=== PATIENT | female | born 1990 | race Caucasian/White ===

== ENCOUNTER 2021-06-06 12:19 | Emergency (ER) | payer OTHER ==
[~2021-06-06] VITALS: Ht 170.2 cm; Wt 95.3 kg
--- NOTE | 2021-06-06 13:21 | NUR ---
DR BARRAZA AT BEDSIDE FOR EVAL.
--- NOTE | 2021-06-06 13:39 | NUR ---
CARBIDE DIE MAKER AT BEDSIDE FOR BLOOD DRAW.
[2021-06-06 14:13] LABS: BASOPHILS # (AUTO) 0.1 K/uL (0.0-0.2); BASOPHILS % (AUTO) 0.7 % (0.0-2.0); EOSINOPHILS % (AUTO) 15.7 % (0.0-6.0); HEMATOCRIT 40 % (33-45); HEMOGLOBIN 13.5 g/dL (11.5-14.8); LYMPHOCYTES # (AUTO) 1.6 K/uL (0.8-4.8); LYMPHOCYTES % (AUTO) 19.3 % (20.0-44.0); MEAN CORPUSCULAR HGB CONC 34 g/dl (31.0-36.0); MEAN CORPUSCULAR VOLUME 87 fL (82-100); MONOCYTES # (AUTO) 0.5 K/uL (0.1-1.30); NEUTROPHILS # (AUTO) 4.9 K/uL (1.8-8.9); NEUTROPHILS % (AUTO) 58.3 % (43.0-81.0); PLATELET COUNT (AUTO) 296 K/uL (150-450); RED BLOOD CELL COUNT(AUTO) 4.58 MIL/uL (4.0-5.2); WHITE BLOOD COUNT (AUTO) 8.4 K/uL (4.3-11.0)
[2021-06-06 14:15] LABS: BILIRUBIN,URINE NEGATIVE (NEGATIVE); COLOR,URINE YELLOW (YELLOW); LEUKOCYTE ESTERASE ,URINE SMALL (NEGATIVE); NITRITE, URINE NEGATIVE (NEGATIVE); PROTEIN,URINE NEGATIVE (NEGATIVE); UGLUCOSE NEGATIVE (NEGATIVE); UROBILINOGEN,URINE 0.2 EU/dL (0.2)
[2021-06-06 14:18] LABS: CALCIUM, SERUM 8.7 mg/dL (8.5-10.1); CREATININE 0.6 mg/dL (0.6-1.3)
[2021-06-06 14:39] LABS: ALBUMIN 4.1 g/dL (3.4-5.0); BILIRUBIN,DIRECT 0.1 mg/dL (0.0-0.2); BILIRUBIN,TOTAL 0.3 mg/dL (0.2-1.0); TOTAL PROTEIN, SERUM 8.1 g/dL (6.4-8.2)
--- NOTE | 2021-06-06 14:58 | NUR ---
COVID SWAB DONE AND SENT TO LAB
[2021-06-06 15:30] LABS: BACTERIA,URINE 1+ /HPF (None Seen); RBC,URINE 0-2 /HPF (0-2)
--- NOTE | 2021-06-06 17:30 | NUR ---
[facility] CL[facility]IC[facility] FAXED OVER TO [facility].
--- NOTE | 2021-06-06 18:37 | NUR ---
Dinner served. Ate 100%. Cooperative and compliant NO distress
--- NOTE | 2021-06-06 20:55 | NUR ---
SPOKE TO VENTS AT [facility] INTAKE. CLINICAL IS REC'D . [facility] UNABLE TO ACCEPT THE PT. INFORMED VENTS ABOUT PT'S ACCEPTANCE AT [facility] AND REQUESTED FOLLOW UP. AWAITING FOR HIS CALL BACK
--- NOTE | 2021-06-06 22:00 | NUR ---
PATIENT IN BED RESTING COMFORTABLY NO COMPLAINTS AT THIS TIME.
--- NOTE | 2021-06-06 22:11 | NUR ---
CALLED [facility] AT [facility]. [facility] AT THIS TIME . HE WILL CALL ME BACK FOR POSSIBLE ACCEPTANCE AND TRANSFER TOMORROW AFTERNOON
--- NOTE | 2021-06-06 23:49 | NUR ---
PT REPOTED SHE'S WILLING TO LEAVE THE HOSPITAL. DENIED SI/HI. MD MADE AWARE WITH AN ORDER FOR D/C. Patient discharged to home in stable condition. Written and verbal after care instructions given. Patient verbalizes understanding of instruction. pt was picked up by her .
[2021-06-06 23:52] VITALS: BP 129/84
== END 2021-06-06 23:52 | disposition home or self-care (01) ==
LOC: ER 12:23
DX: F32.A Depression, unspecified (principal); Z20.822 Contact with and (suspected) exposure to COVID-19; Z53.29 Procedure and treatment not carried out because of patient's decision for other reasons; F60.3 Borderline personality disorder
CPT/HCPCS: 36415; 80048; 80076; 80143; 80307; 80320; 81001; 84703; 85025; 87086; 87426; 99285; C9803; G0480

== ENCOUNTER 2021-06-07 12:24 | Emergency (ER) | payer OTHER ==
[~2021-06-07] VITALS: Ht 170.2 cm; Wt 95.3 kg
--- NOTE | 2021-06-07 12:40 | NUR ---
PT SELF PRESENTS TO ED. C/O DEPRESSION. SEEN YESTERDAY FOR SAME REASON BUT NOW IS FEELING SUICIDAL ANED WANTS TO RUN INTO TRAFFIC. PT IS COOPERATIVE TO STAFF. DENIES HI. STABLE VITALS. AWAITING MD GARDNER.
--- NOTE | 2021-06-07 12:45 | NUR ---
DR ALDRIDGE AT BEDSIDE FOR EVAL.
[2021-06-07 12:57] LABS: BASOPHILS % (AUTO) 0.3 % (0.0-2.0); EOSINOPHILS % (AUTO) 12.5 % (0.0-6.0); HEMATOCRIT 40 % (33-45); HEMOGLOBIN 13.3 g/dL (11.5-14.8); LYMPHOCYTES # (AUTO) 1.1 K/uL (0.8-4.8); LYMPHOCYTES % (AUTO) 11.6 % (20.0-44.0); MEAN CORPUSCULAR HGB CONC 33 g/dl (31.0-36.0); MEAN CORPUSCULAR VOLUME 87 fL (82-100); MONOCYTES # (AUTO) 0.7 K/uL (0.1-1.30); MONOCYTES % (AUTO) 7.3 % (2.0-12.0); NEUTROPHILS # (AUTO) 6.6 K/uL (1.8-8.9); NEUTROPHILS % (AUTO) 68.3 % (43.0-81.0); PLATELET COUNT (AUTO) 284 K/uL (150-450); RED BLOOD CELL COUNT(AUTO) 4.57 MIL/uL (4.0-5.2); WHITE BLOOD COUNT (AUTO) 9.6 K/uL (4.3-11.0)
[2021-06-07 12:59] LABS: BILIRUBIN,URINE NEGATIVE (NEGATIVE); COLOR,URINE YELLOW (YELLOW); LEUKOCYTE ESTERASE ,URINE SMALL (NEGATIVE); NITRITE, URINE NEGATIVE (NEGATIVE); PROTEIN,URINE NEGATIVE (NEGATIVE); UGLUCOSE NEGATIVE (NEGATIVE); UROBILINOGEN,URINE 0.2 EU/dL (0.2)
[2021-06-07 13:07] LABS: CALCIUM, SERUM 8.7 mg/dL (8.5-10.1); CARBON DIOXIDE 26 mmol/L (21-32); CHLORIDE 104 mmol/L (98-107); CREATININE 0.7 mg/dL (0.6-1.3); GLUCOSE 96 mg/dL (74-106); POTASSIUM 3.9 mmol/L (3.5-5.1); SODIUM SERUM 141 mmol/L (136-145); UREA NITROGEN, BLOOD 7 mg/dL (7-18)
[2021-06-07 13:13] LABS: ALANINE AMINOTRANSFERASE 28 U/L (12-78); ALBUMIN 3.9 g/dL (3.4-5.0); ALCOHOL, BLOOD < 3 mg/dL (0-0); ALKALINE PHOSPHATASE 65 U/L (46-116); ASPARTATE AMINOTRANSFERASE 15 U/L (15-37); BILIRUBIN,DIRECT 0.1 mg/dL (0.0-0.2); BILIRUBIN,TOTAL 0.4 mg/dL (0.2-1.0); TOTAL PROTEIN, SERUM 7.9 g/dL (6.4-8.2)
[2021-06-07 13:27] LABS: BACTERIA,URINE Few /HPF (None Seen); RBC,URINE 0-2 /HPF (0-2); SQUAMOUS EPITHELIAL CELL,UR Moderate /HPF (None Seen)
[2021-06-07 13:28] LABS: MUCUS,URINE Few /LPF (None Seen)
--- NOTE | 2021-06-07 17:06 | NUR ---
CALLED [facility], CONFIRMED RECIEVED FAXED.
--- NOTE | 2021-06-07 17:51 | NUR ---
PT REFUSED TO GO TO [facility] DUE TO NOT BEING SUICIDAL ANYMORE.
--- NOTE | 2021-06-07 18:04 | NUR ---
PT NO LONGER SUICIDAL. WOULD LIKE TO BE DISCHARGE AND WILL JUST FOLLOW UP. DR RAMIREZ MADE AWARE. PT DISCHARGE IN STABLE CONDITION.
[2021-06-07 18:05] VITALS: BP 115/74
== END 2021-06-07 18:05 | disposition home or self-care (01) ==
LOC: ER 12:27
DX: F32.9 Major depressive disorder, single episode, unspecified (principal); Z90.89 Acquired absence of other organs; Z90.49 Acquired absence of other specified parts of digestive tract
CPT/HCPCS: 36415; 80048-TC; 80076-TC; 81001; 85025-TC; 87086-TC; G0480